=== PATIENT | female | born 1985 | race Caucasian/White ===

== ENCOUNTER 2017-11-17 21:40 | Observation (INO) | payer OTHER ==
[2017-11-17] MEDS ORDERED: Lactated Ringers 2,000 ML IV ONE (22:03)
[2017-11-17] MEDS ORDERED: TYLENOL 325 MG PO PRN (22:24)
[2017-11-17] MEDS ORDERED: Lactated Ringers 1,000 ML IV SCH ×2 (22:30)
[2017-11-17 22:51] LABS: Appearance SLIGHTLY CLOUDY (CLEAR); Bilirubin NEGATIVE (NEGATIVE); Blood 250 Ery/ul (0-5); Glucose NEGATIVE (NEGATIVE); Ketones NEGATIVE (NEGATIVE); Leukocyte Esterase 2+ (NEGATIVE); Nitrite NEGATIVE (NEGATIVE); Protein,Urine Dip NEGATIVE (Negative); Urobilinogen NORMAL mg/dL (0-1)
[2017-11-17 22:52] LABS: Bacteria MODERATE /HPF (NEGATIVE); Epithelial Cells MANY /HPF (FEW)
[2017-11-17] MEDS ORDERED: TYLENOL 325 MG ONE (23:43)
[2017-11-18 01:59] VITALS: BP 102/55; PULSE 64
== END 2017-11-17 23:55 | disposition home or self-care (01) ==
LOC: OB 21:40 → UNDOADMOB 21:40 → UNDODISOB 23:55
PROVIDERS: ADMIT Family Medicine; ATTEND Family Medicine
DX: Z34.82 Encounter for supervision of other normal pregnancy, second trimester (principal)
CPT/HCPCS: 81000; G0378; A9270-GY

== ENCOUNTER 2017-12-12 13:48 | Observation (INO) | payer OTHER ==
[2017-12-12 15:10] LABS: Appearance CLOUDY (CLEAR); Bilirubin NEGATIVE (NEGATIVE); Blood 250 Ery/ul (0-5); Glucose NEGATIVE (NEGATIVE); Ketones TRACE (NEGATIVE); Leukocyte Esterase 2+ (NEGATIVE); Nitrite NEGATIVE (NEGATIVE); Protein,Urine Dip TRACE (Negative); Urobilinogen NORMAL mg/dL (0-1)
[2017-12-12 15:14] LABS: Mucus MANY /HPF (NEGATIVE)
[2017-12-12 15:15] LABS: Bacteria MODERATE /HPF (NEGATIVE); Epithelial Cells MODERATE /HPF (FEW)
[2017-12-12] MEDS ORDERED: Rocephin 1000 MG INJ IM ONE (15:50)
[2017-12-12] MEDS ORDERED: XYLOCAINE 1% HCL 20 ML MDV IJ PRN (15:53)
[2017-12-12 16:16] LABS: BASOPHIL % 0.3 % (0.0-0.4); Basophil (Absolute #) 0.04 (0-0.4); Eosinophil % 1.2 % (0.00-5.0); Eosinophil (Absolute #) 0.18 (0-0.5); Granulocyte Absolute (ANC) 11.66 (1.4-6.9); Granulocytes % 78.1 % (36.0-66.0); Hematocrit 35.2 % (35-47); Hemoglobin 11.3 gm/dl (12.0-16.0); Lymphocyte (Absolute #) 2.08 (1.0-4.6); Lymphocytes % 13.9 % (24.0-44.0); Mean Cell Volume 91.7 fl (78-100); Mean Corpuscular Hemoglobin 29.4 pg (26-32); Mean Corpuscular Hgb Concent. 32.1 g/dl (32-36); Mean Platelet Volume 10.8 fl (6-9.5); Monocyte (Absolute #) 0.97 (0.0-1.3); Monocytes % 6.5 % (0.0-12.0); Platelet Count 291 K/mm3 (150-450); Red Blood Count 3.84 M/mm3 (4.1-5.4); Red Cell Distribution Width 13.1 % (11.5-14.0); White Blood Count 14.9 K/mm3 (4.0-10.5)
[2017-12-12] MEDS ORDERED: Lactated Ringers 1,000 ML IV ONE (16:17)
[2017-12-12] MEDS ORDERED: ROCEPHIN 1 Gm-D5w 50 ml Bag** 1 G/50 ML IVPB IV SCH (16:30)
[2017-12-12 16:37] LABS: ALBUMIN 2.9 g/dL (3.4-5.0); ALKALINE PHOSPHATASE 59 U/L (46-116); ANION GAP 15.7 MEQ/L (5-15); BLOOD UREA NITROGEN 4 mg/dL (9-20); CHLORIDE 104 mEq/L (98-107); Calcium 8.5 mg/dL (8.5-10.1); Carbon Dioxide 23.4 mEq/L (21-32); Creatinine 1 0.58 mg/dl (0.55-1.30); EST GLOMERULAR FILTRATION RATE > 60 ML/MIN; Glucose 90 MG/DL (70-110); Potassium 4.1 mEq/L (3.5-5.1); SGOT/AST 13 U/L (15-37); SGPT/ALT 11 U/L (12-78); SODIUM 139 mEq/L (136-145); Total Protein 6.8 gm/dL (6.4-8.2)
[2017-12-12 18:49] VITALS: BP 122/63; PULSE 63
== END 2017-12-12 18:30 | disposition home or self-care (01) ==
LOC: OB 13:48
PROVIDERS: ADMIT Family Medicine; ATTEND Family Medicine
DX: Z34.83 Encounter for supervision of other normal pregnancy, third trimester (principal)
CPT/HCPCS: 36415; 59025; 80053; 81000; 85025; G0378; J0696

== ENCOUNTER 2018-02-23 09:57 | Observation (INO) | payer OTHER ==
--- NOTE | 2018-02-23 10:59 | XRAY ---
Indication: Evaluate SUNDEEP. Limited OB ultrasound performed to evaluate SUNDEEP. Four-quadrant SUNDEEP is 6.9 cm, previously 16.3 cm November 29, 2017 exam.
[2018-02-23 11:27] VITALS: BP 114/79; PULSE 79
== END 2018-02-23 11:18 | disposition home or self-care (01) ==
LOC: EDSTATUS 10:01 → OB 10:02
PROVIDERS: ADMIT Family Medicine; ATTEND Family Medicine
DX: Z34.83 Encounter for supervision of other normal pregnancy, third trimester (principal)
CPT/HCPCS: 76815; G0378; 59025

== ENCOUNTER 2018-02-27 14:26 | Observation (INO) | payer OTHER ==
[2018-02-27] MEDS ORDERED: XYLOCAINE 1% HCL 20 ML MDV IJ PRN (17:00)
[2018-02-27] MEDS ORDERED: BRETHINE 1 MG/ML SQ PRN (18:42)
[2018-02-27 19:03] LABS: Amphetamine,Urine NEGATIVE (NEGATIVE); Barbiturate,Urine NEGATIVE (NEGATIVE); Benzodiazepine,Urine NEGATIVE (NEGATIVE); Cocaine,Urine NEGATIVE (NEGATIVE); Methadone,Urine NEGATIVE (NEGATIVE); Opiate,Urine NEGATIVE (NEGATIVE); PCP,Urine NEGATIVE (NEGATIVE); THC,Urine NEGATIVE (NEGATIVE)
[2018-02-27 19:12] LABS: BASOPHIL % 0.2 % (0.0-0.4); Basophil (Absolute #) 0.04 (0-0.4); Eosinophil % 0.8 % (0.00-5.0); Eosinophil (Absolute #) 0.14 (0-0.5); Granulocyte Absolute (ANC) 14.05 (1.4-6.9); Granulocytes % 78.6 % (36.0-66.0); Hematocrit 39.7 % (35-47); Hemoglobin 13.3 gm/dl (12.0-16.0); Lymphocyte (Absolute #) 2.45 (1.0-4.6); Lymphocytes % 13.7 % (24.0-44.0); Mean Cell Volume 89.4 fl (78-100); Mean Corpuscular Hgb Concent. 33.5 g/dl (32-36); Mean Platelet Volume 11.8 fl (6-9.5); Monocytes % 6.7 % (0.0-12.0); Platelet Count 299 K/mm3 (150-450); Red Blood Count 4.44 M/mm3 (4.1-5.4); Red Cell Distribution Width 13.9 % (11.5-14.0); White Blood Count 17.9 K/mm3 (4.0-10.5)
[2018-02-27] MEDS ORDERED: Cervidil 10 MG VAG SCH (22:00)
[2018-02-28] MEDS ORDERED: OMNIPEN 2 GM / NACL 100ML 100 ML IV ONE (07:00)
[2018-02-28] MEDS ORDERED: PITOCIN 30 UNITS/ LR 500 ML 500 ML IV SCH ×2 (07:00→08:30)
[2018-02-28] MEDS ORDERED: Lactated Ringers 1,000 ML IV SCH (07:00)
[2018-02-28] MEDS: OMNIPEN 1GM / NaCl 100ML 100 ML IV SCH ×2 (11:05→15:52)
[2018-02-28 18:23] VITALS: BP 119/58; PULSE 61
== END 2018-02-28 18:30 | disposition home or self-care (01) ==
LOC: OB 16:52
PROVIDERS: ADMIT Family Medicine; ATTEND Family Medicine
DX: O61.0 Failed medical induction of labor (principal); Z3A.41 41 weeks gestation of pregnancy
CPT/HCPCS: 36415; 80307; 85025; G0378; J0290; J2590

== ENCOUNTER 2018-03-01 05:03 | Inpatient (IN) | payer OTHER ==
[2018-03-01] MEDS ORDERED: OMNIPEN 2 GM / NACL 100ML 100 ML ONE (05:06)
[2018-03-01] MEDS ORDERED: PITOCIN 30 UNITS/ LR 500 ML 500 ML IV ONE (05:06)
[2018-03-01] MEDS ORDERED: Lactated Ringers 2,000 ML IV ONE (05:06)
[2018-03-01] MEDS ORDERED: PITOCIN 30 UNITS/ LR 500 ML 500 ML IV SCH ×2 (05:30→06:00)
[2018-03-01] MEDS: Lactated Ringers 1,000 ML IV SCH ×2 (05:31→11:01)
[2018-03-01] MEDS ORDERED: BRETHINE 1 MG/ML SQ PRN (05:32)
[2018-03-01] MEDS ORDERED: Lactated Ringers 1,000 ML IV ONE (05:32)
[2018-03-01] MEDS ORDERED: Ephedrine Sulfate 50 MG/ML IV PRN (05:32)
[2018-03-01] MEDS ORDERED: OMNIPEN 2 GM / NACL 100ML 100 ML IV ONE (05:34)
[2018-03-01] MEDS: OB EPIDURAL NAROPIN/SUFENTANIL IN NACL EPIDURAL PRN ×2 (06:30→19:23)
[2018-03-01 08:32] LABS: BASOPHIL % 0.2 % (0.0-0.4); Basophil (Absolute #) 0.03 (0-0.4); Eosinophil % 0.7 % (0.00-5.0); Eosinophil (Absolute #) 0.11 (0-0.5); Granulocyte Absolute (ANC) 13.04 (1.4-6.9); Granulocytes % 80.7 % (36.0-66.0); Hemoglobin 12.6 gm/dl (12.0-16.0); Lymphocyte (Absolute #) 2.01 (1.0-4.6); Lymphocytes % 12.4 % (24.0-44.0); Mean Cell Volume 90.3 fl (78-100); Mean Corpuscular Hemoglobin 29.9 pg (26-32); Mean Corpuscular Hgb Concent. 33.2 g/dl (32-36); Mean Platelet Volume 11.5 fl (6-9.5); Monocyte (Absolute #) 0.97 (0.0-1.3); Platelet Count 265 K/mm3 (150-450); Red Blood Count 4.21 M/mm3 (4.1-5.4); White Blood Count 16.2 K/mm3 (4.0-10.5)
[2018-03-01] MEDS ORDERED: OMNIPEN 1GM / NaCl 100ML 100 ML IV SCH (09:34)
[2018-03-01] MEDS: OMNIPEN 1GM / NaCl 100ML 100 ML IV SCH ×3 (11:01→19:05)
[2018-03-01] MEDS ORDERED: Zofran 4 MG/2 ML VIAL IV PRN (15:18)
[2018-03-01] MEDS ORDERED: XYLOCAINE 1% HCL 20 ML MDV IJ PRN (19:00)
[2018-03-01] MEDS ORDERED: XYLOCAINE 1% HCL 20 ML MDV ONE (21:40)
[2018-03-01] MEDS ORDERED: Dermoplast Spray TP PRN (22:00)
[2018-03-01] MEDS ORDERED: LANSINOH 40 GM TOP PRN (22:00)
[2018-03-01] MEDS ORDERED: TYLENOL EXTRA STRENGTH 500 MG PO PRN (22:00)
[2018-03-01] MEDS ORDERED: Dulcolax 10 MG SUPP PR PRN (22:00)
[2018-03-01] MEDS ORDERED: MOTRIN 400 MG PO PRN (22:00)
[2018-03-01] MEDS ORDERED: TUCKS TP PRN (22:00)
[2018-03-01] MEDS ORDERED: Mylicon 80MG PO PRN (22:00)
[2018-03-01] MEDS ORDERED: TORAdol 30 mg Injection IV ONE (22:44)
[2018-03-01] MEDS ORDERED: SUBLIMAZE 100 MCG/2 ML IV ONE (22:44)
[2018-03-01] MEDS ORDERED: Decadron 4 MG INJ IV ONE (22:44)
[2018-03-01] MEDS ORDERED: DIPRIVAN 200 MG/20 ML IV ONE (22:44)
[2018-03-01] MEDS ORDERED: XYLOCAINE 2%/Epi 1:200000 20ML VIAL MPF IJ ONE (22:44)
[2018-03-01] MEDS ORDERED: Nesacaine 3% -Mpf*** 20ML SDV IJ ONE (22:44)
[2018-03-01] MEDS ORDERED: Quelicin Fliptop 200 MG/10 ML IV ONE (22:44)
[2018-03-01] MEDS ORDERED: Ephedrine Sulfate 50 MG/ML IV ONE (22:44)
[2018-03-01] MEDS ORDERED: Zofran 4 MG/2 ML VIAL IV ONE (22:44)
[2018-03-01] MEDS ORDERED: Zemuron 100 MG/10 ML IV ONE (22:44)
[2018-03-01] MEDS ORDERED: Dermoplast Spray ONE (23:29)
[2018-03-01] MEDS ORDERED: TUCKS TP ONE (23:29)
[2018-03-02 00:36] LABS: ABO TYPING A
[2018-03-02 00:37] LABS: ANTIBODY SCREEN NEGATIVE (NEGATIVE); RH TYPING NEGATIVE
[2018-03-02 05:35] LABS: Granulocyte Absolute (ANC) 16.61 (1.4-6.9); Hemoglobin 12.5 gm/dl (12.0-16.0); Mean Cell Volume 90.7 fl (78-100); Mean Corpuscular Hemoglobin 29.8 pg (26-32); Mean Corpuscular Hgb Concent. 32.9 g/dl (32-36); Platelet Count 252 K/mm3 (150-450); Red Blood Count 4.19 M/mm3 (4.1-5.4); Red Cell Distribution Width 14.1 % (11.5-14.0); White Blood Count 20.6 K/mm3 (4.0-10.5)
[2018-03-02] MEDS ORDERED: Lactated Ringers 1,000 ML IV ONE ×2 (06:00→06:55)
[2018-03-02] MEDS ORDERED: CEFAZOLIN 2 GM-D5W BAG** 2 GM/50 ML ML IV ONE (06:48)
[2018-03-02] MEDS ORDERED: Sensorcaine 0.25% 10 ML ONE (06:55)
[2018-03-02 07:00] LABS: INR 0.88 (0.8-3.0)
[2018-03-02] MEDS ORDERED: CEFAZOLIN 2 GM-D5W BAG** 2 GM/50 ML ML IV SCH (07:00)
[2018-03-02 07:03] LABS: PTT 28.8 SECONDS (25.3-37.0)
[2018-03-02 08:02] LABS: Eosinophil 3 % (0.00-3.0); Lymphocytes 5 % (24-44); Monocyte 10 % (0.0-12.0); Neutrophils 82 % (36.0-66.0); Total Cells Counted 100
[2018-03-02 08:05] LABS: ANISOCYTOSIS 1+; Poikilocytosis 1+
[2018-03-02] MEDS ORDERED: Zofran 4 MG/2 ML VIAL ONE (09:00)
[2018-03-02] MEDS ORDERED: TORAdol 30 mg Injection ONE (09:06)
[2018-03-02 09:41] LABS: Appearance HAZY (CLEAR); Bilirubin NEGATIVE (NEGATIVE); Blood 250 Ery/ul (0-5); Glucose NEGATIVE (NEGATIVE); Ketones NEGATIVE (NEGATIVE); Leukocyte Esterase 1+ (NEGATIVE); Nitrite NEGATIVE (NEGATIVE); Protein,Urine Dip NEGATIVE (Negative); Urobilinogen NORMAL mg/dL (0-1)
[2018-03-02 09:42] LABS: Bacteria FEW /HPF (NEGATIVE); Epithelial Cells FEW /HPF (FEW); RBC 15-25 /HPF (0-2)
[2018-03-02] MEDS ORDERED: Rhogam Plus 300 MCG IM ONE (10:00)
[2018-03-02] MEDS ORDERED: FERREX 150 PO SCH (10:00)
[2018-03-02] MEDS: Colace 100 MG PO SCH ×2 (11:15→20:50)
[2018-03-02] MEDS: NORCO 5/325 MG PO PRN ×2 (11:15→15:29)
--- NOTE | 2018-03-02 13:22 | OP ---
SURGERY DATE/TIME: 03/02/2018 0742 PREOPERATIVE DIAGNOSIS: Desires permanent sterilization. POSTOPERATIVE DIAGNOSIS: Desires permanent sterilization. PROCEDURES: bilateral tubal ligation. SURGEON: Chester Cardenas M.D. ANESTHESIA: General by Kristopher Callahan CRNA. ESTIMATED BLOOD LOSS: Minimal. SPECIMENS: Bilateral fallopian tube segments. DESCRIPTION OF PROCEDURE: After informed, written consent was obtained, the patient was taken to the OR. She was prepped and draped in usual sterile fashion. 0.25% Marcaine was used to infiltrate the area of incision with 10 cc used in total. Infraumbilical incision was made in horizontal fashion carried down to the subcutaneous fat. The fascia was grasped with hemostats and carefully the fascia opened and extended in the horizontal fashion. First the left fallopian tube identified and carried down to its fimbrial end. The tube was grasped with [place] and then a window made in the mesoappendix with cautery proximal and distal tube segments were ligated with chromic tie and the interceding tube segment dissected free. The free edge of the tube was then cauterized with electrocautery. The same was repeated on the right side with no complications. The fascia was then closed with 0 Vicryl in running fashion with good closure and good hemostasis. Three interrupted sutures were placed in the subcutaneous fat to close the space with 3-0 Vicryl with good closure and good hemostasis. Finally, the skin layer was closed with 4-0 undyed Vicryl in running subcuticular fashion. Steri-Strips and occlusive dressing were placed over the incision. The patient was transferred to recovery in good condition.
--- NOTE | 2018-03-02 14:59 | PCM.DS ---
Discharge Summary Date of Admission: 03/01/18 08:45 Admitting Physician: DANNY ORELLANA Consults: Consults on Case 03/01/18 05:33 Notify Anesthesia Provider PRN Primary Care Provider: DANNY ORELLANA Allergies Allergies No Known Drug Allergies Allergy (Verified 11/17/17 23:27) Hospital Summary - Hospital Course Hospital Course: Pt came in as 32 yo at 40w 1d for post dates induction of labor. She failed cervadil overnight and pitocin the next day. Pt went home then returned; got her epidural at 3cm then AROM with clear fluid. Received abx for GBS prohpylaxis prior to AROM. Delivered vigorous female, 7lb 14oz, at 9:30 pm. no complications. BTL done this morning. pt is up out of bed, feeling good, would like to go home. 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 - Vitals & Intake/Output Vital Signs: Vital Signs Temperature 98.1 F 03/02/18 06:42 Pulse Rate 80 03/02/18 06:42 Respiratory Rate 18 03/02/18 06:42 Blood Pressure 107/71 03/02/18 06:42 O2 Sat by Pulse Oximetry Intake & Output: Intake & Output 02/28/18 03/01/18 03/02/18 03/03/18 11:59 11:59 11:59 11:59 Intake Total 4900 Output Total 500 Balance 4400 Weight 112.491 kg 112.491 kg - Lab Result Diagrams: 03/02/18 05:20 Lab Results-Last 24 Hrs: Lab Results-Last 24 Hours 03/01/18 03/01/18 03/02/18 Range/Units 22:20 22:44 05:00 WBC (4.0-10.5) K/mm3 RBC (4.1-5.4) M/mm3 Hgb (12.0-16.0) gm/dl Hct (35-47) % MCV (78-100) fl MCH (26-32) pg MCHC (32-36) g/dl RDW (11.5-14.0) % Plt Count (150-450) K/mm3 MPV (6-9.5) fl Absolute Granulocytes (1.4-6.9) Segmented Neutrophils (36.0-66.0) % Lymphocytes (Manual) (24-44) % Monocytes (Manual) (0.0-12.0) % Eosinophils (Manual) (0.00-3.0) % Poikilocytosis Anisocytosis PT 10.2 (9.95-12.35) SECONDS INR 0.88 (0.8-3.0) APTT 28.8 (25.3-37.0) SECONDS Ur Collection Type Urine Color (YELLOW) Urine Appearance (CLEAR) Urine pH (5-6) Ur Specific [place] (1.005-1.025) Urine Protein (Negative) Urine Ketones (NEGATIVE) Urine Blood (0-5) Sam/ul Urine Nitrite (NEGATIVE) Urine Bilirubin (NEGATIVE) Urine Urobilinogen (0-1) mg/dL Ur Leukocyte Esterase (NEGATIVE) Urine Microscopic RBC (0-2) /HPF Urine Microscopic WBC (0-5) /HPF Ur Epithelial Cells (FEW) /HPF Urine Bacteria (NEGATIVE) /HPF Urine Glucose (NEGATIVE) mg/dL Antibody Screen NEGATIVE (NEGATIVE) Specimen Received ABO Group A Rh Factor NEGATIVE Screen SEE SEPARATE REPORT 03/02/18 03/02/18 Range/Units 05:20 07:51 WBC 20.6 H (4.0-10.5) K/mm3 RBC 4.19 (4.1-5.4) M/mm3 Hgb 12.5 (12.0-16.0) gm/dl Hct 38.0 (35-47) % MCV 90.7 (78-100) fl MCH 29.8 (26-32) pg MCHC 32.9 (32-36) g/dl RDW 14.1 H (11.5-14.0) % Plt Count 252 (150-450) K/mm3 MPV 12.0 H (6-9.5) fl Absolute Granulocytes 16.61 H (1.4-6.9) Segmented Neutrophils 82 H (36.0-66.0) % Lymphocytes (Manual) 5 L (24-44) % Monocytes (Manual) 10 (0.0-12.0) % Eosinophils (Manual) 3 (0.00-3.0) % Poikilocytosis 1+ Anisocytosis 1+ PT (9.95-12.35) SECONDS INR (0.8-3.0) APTT (25.3-37.0) SECONDS Ur Collection Type CATH Urine Color YELLOW (YELLOW) Urine Appearance HAZY (CLEAR) Urine pH 6.0 (5-6) Ur Specific [place] 1.020 (1.005-1.025) Urine Protein NEGATIVE (Negative) Urine Ketones NEGATIVE (NEGATIVE) Urine Blood 250 (0-5) Sam/ul Urine Nitrite NEGATIVE (NEGATIVE) Urine Bilirubin NEGATIVE (NEGATIVE) Urine Urobilinogen NORMAL (0-1) mg/dL Ur Leukocyte Esterase 1+ (NEGATIVE) Urine Microscopic RBC 15-25 (0-2) /HPF Urine Microscopic WBC 2-5 (0-5) /HPF Ur Epithelial Cells FEW (FEW) /HPF Urine Bacteria FEW (NEGATIVE) /HPF Urine Glucose NEGATIVE (NEGATIVE) mg/dL Antibody Screen (NEGATIVE) Specimen Received 03/02 915 ABO Group Rh Factor Screen Micro Results-Entire Visit: Microbiology 03/01/18 13:52 Urine Culture - Preliminary Catherized NO GROWTH TO DATE Discharge Exam General Appearance: no apparent distress, alert Neurologic Exam: oriented x 3, cooperative Skin Exam: normal color, warm, dry, No rash Ears, Nose, Throat Exam: moist mucous membranes Neck Exam: full range of motion Respiratory Exam: No respiratory distress Gastrointestinal/Abdomen Exam: soft, tenderness (mild), other (umbilical wound dressing c/d/i. Fundus firming under umbilicus.), No distention Extremity Exam: normal inspection, No pedal edema, No swelling Final Diagnosis/Problem List - Final Discharge Diagnosis/Problem (1) Spontaneous vaginal delivery Current Visit: Yes Status: Acute Assessment & Plan: PPD #1, doing great. OK to d/c home. Advised watch baby's temperature closely with +GBS, although prophylaxis was given. (2) Tubal ligation status Current Visit: Yes Status: Acute Assessment & Plan: POD #0 today, doing great, Dr. Cardenas OK with pt being discharged to home. - Discharge Disposition: Home, Self-Care Condition: Good Prescriptions: New Hydrocodone Bit/Acetaminophen [[place] 5-325 Tablet] 1 each PO Q4H PRN #10 tablet MDD 6 PRN Reason: Severe Pain Continue Vits W-Ca,Fe,FA(<1Mg) [] 1 tab PO LUNCH Follow up with: DANNY ORELLANA [Primary Care Provider] - 1 Week
[2018-03-02 18:36] VITALS: BP 136/63
[2018-03-02 18:41] VITALS: PULSE 18
== END 2018-03-02 22:45 | disposition home or self-care (01) | DRG 775 ==
LOC: OB 05:03 → OBSVTOIN 08:45 → OB 08:45
PROVIDERS: ADMIT Family Medicine; ATTEND Family Medicine
DX: O80 Encounter for full-term uncomplicated delivery (principal); Z37.0 Single live birth; Z3A.40 40 weeks gestation of pregnancy; Z30.2 Encounter for sterilization
CPT/HCPCS: 36415; 81000; 85025; 85461; 85610; 85730; 86850; 86900; 86901; 87086; 94799; G0378; J0290; J0330; J0690; J1100; J1885; J2405; J2590; J2704; J2790; J2795; J3010; L0625; A9270-GY

== ENCOUNTER 2023-11-26 04:19 | Emergency (ER) | payer OTHER ==
[2023-11-26 04:50] VITALS: TEMP 97.7; O2SAT 100
[2023-11-26] MEDS ORDERED: TORAdol 30 mg Injection IV ONE (04:51)
[2023-11-26] MEDS ORDERED: Zofran 4 MG/2 ML VIAL IV ONE (04:52)
[2023-11-26] MEDS ORDERED: BENADRYL 50 MG/ML IV ONE (04:52)
[2023-11-26] MEDS ORDERED: Sodium Chloride 0.9% 1000 ML 1,000 ML IV STA (04:53)
--- NOTE | 2023-11-26 04:56 | ERPHSYRPT ---
- History of Present Illness Time Seen by Provider: 11/26/23 04:54 Source: patient Patient Subjective Stated Complaint: pt states she has had a headache off and on since yesterday. states she woke up at 0100 this am with pain in her rt head, behind her rt eye to occipital area. pain was not relieved by otc medications taken at home and pt states for approx 15 min this morning. rates 8/10 and describes as pressure. Triage Nursing Assessment: pt alert and oriented, answers questions approp. pt ambulates into room with steady gait noted. respirations nonlabored/ skin warm and dry. pt moves extremities without diff. pupils equal and reactive. Physician History: 38 years old female presenting to the emergency room complaining of severe right-sided headache behind her right eye radiating to her right occiput with nausea and some photophobia. The patient states that yesterday she has been having these headaches on and off. She woke up at 1 AM with severe right retro-orbital sharp headache. The patient took Tylenol 500, ibuprofen 200 mg and some NyQuil without any relief. She rates her headache as 8 out of 10. She states that at 1 time she lost vision in her right eye for probably 15 minutes. She denies any other neurological symptoms. At present her vision is back to normal. The patient has no history of migraine headaches. Allergies/Adverse Reactions: No Known Drug Allergies Allergy (Verified 11/17/17 23:27) Home Medications: Vits W-Ca,Fe,FA(<1Mg) [] 1 tab PO LUNCH 11/17/17 [History] Hx Tetanus, Diphtheria Vaccination/Date Given: Yes Hx Influenza Vaccination/Date Given: Yes Hx Pneumococcal Vaccination/Date Given: No Immunizations Up to Date: Yes Travel Risk - International Travel Have you traveled outside of the country in past 3 weeks: No - Coronavirus Screening Are you exhibiting any of the following symptoms?: No Close contact with a COVID-19 positive Pt in past 14-21 Days: No - Vaccine Status Have you recieved a Covid-19 vaccination: Yes [employer]: [employer] - Vaccination Dates Date of 2cond Vaccination (if applicable): 2020 - Review of Systems Constitutional: No Fever, No Chills Eyes: No Symptoms, Vision Changes Ears, Nose, & Throat: No Symptoms Respiratory: No Cough, No Dyspnea Cardiac: No Chest Pain, No Edema, No Syncope Abdominal/Gastrointestinal: Nausea, No Abdominal Pain, No Vomiting, No Diarrhea Genitourinary Symptoms: No Dysuria Musculoskeletal: No Back Pain, No Neck Pain Skin: No Rash Neurological: Headache, No Dizziness, No Focal Weakness, No Sensory Changes Psychological: No Symptoms Endocrine: No Symptoms All Other Systems: Reviewed and Negative - Past Medical History Pertinent Past Medical History: Yes Neurological History: No Pertinent History ENT History: No Pertinent History Cardiac History: No Pertinent History Respiratory History: No Pertinent History Endocrine Medical History: No Pertinent History Musculoskeletal History: No Pertinent History GI Medical History: Gallbladder Disease History: No Pertinent History Psycho-Social History: Anxiety Female Reproductive Disorders: No Pertinent History Other Medical History: SX - CHOLECYSTECOMY, TONSILLECTOMY, TUBAL LIGATION - Past Surgical History Past Surgical History: Yes Neuro Surgical History: No Pertinent History Cardiac: No Pertinent History Respiratory: No Pertinent History Gastrointestinal: Cholecystectomy Genitourinary: No Pertinent History Musculoskeletal: No Pertinent History Female Surgical History: No Pertinent History Other Surgical History: TONSILLECTOMY - Social History Smoking Status: Former smoker How long have you smoked: 15 Exposure to second hand smoke: No Drug Use: none Patient Lives Alone: No - Female History Hx Last Menstrual Period: 10 days Hx Now: No - Nursing Vital Signs Nursing Vital Signs: Initial Vital Signs Temperature 97.7 F 11/26/23 04:27 Pulse Rate 74 11/26/23 04:27 Respiratory Rate 16 11/26/23 04:27 Blood Pressure 145/83 11/26/23 04:27 O2 Sat by Pulse Oximetry 100 11/26/23 04:27 Pain Scale Pain Intensity 8 - Physical Exam General Appearance: no apparent distress Eye Exam: PERRL/EOMI Ears, Nose, Throat Exam: normal ENT inspection, moist mucous membranes Neck Exam: normal inspection, supple, full range of motion, No meningismus Respiratory Exam: normal breath sounds, lungs clear Cardiovascular Exam: regular rate/rhythm, normal heart sounds Gastrointestinal/Abdominal Exam: soft, No tenderness, No distention Back Exam: normal inspection, normal range of motion Mental Status Exam: alert, oriented x 3, 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 Exam: normal speech, PERRL, No facial droop Coordination/Gait Exam: normal cerebellar function Motor/Sensory Exam: no motor deficit, no sensory deficit Skin Exam: normal color, warm, dry, No rash SpO2: 100 - Course Nursing assessment & vital signs reviewed: Yes Ordered Tests: Active Orders 24 hr Category Date Time Status HEAD WITHOUT CONTRAST [CT] Stat Exams 11/26/23 04:50 Completed Medication Summary Discontinued Medications Generic Name Dose Route Start Last Admin Trade Name Brennen PRN Reason Stop Dose Admin Diphenhydramine HCl 25 mg 11/26/23 04:52 11/26/23 05:11 Diphenhydramine Hcl 50 Mg/Ml Vial IV 11/26/23 04:53 25 mg STAT ONE Administration Diphenhydramine HCl Confirm 11/26/23 05:01 Diphenhydramine Hcl 50 Mg/Ml Vial Administered 11/26/23 05:02 Dose 50 mg .ROUTE .STK-MED ONE Sodium Chloride 1,000 mls @ 999 mls/hr 11/26/23 04:53 11/26/23 05:11 Sodium Chloride 0.9% 1000 Ml IV 11/26/23 05:53 999 mls/hr .Q1H1M STA Administration Sodium Chloride Confirm 11/26/23 05:02 Sodium Chloride 0.9% 1000 Ml Administered 11/26/23 05:03 Dose 1,000 mls @ ud .ROUTE .STK-MED ONE Ketorolac Tromethamine 30 mg 11/26/23 04:51 11/26/23 05:18 Ketorolac Tromethamine 30 Mg/Ml Inj IV 11/26/23 04:52 30 mg STAT ONE Administration Ketorolac Tromethamine Confirm 11/26/23 05:01 Ketorolac Tromethamine 30 Mg/Ml Inj Administered 11/26/23 05:02 Dose 30 mg .ROUTE .STK-MED ONE Ondansetron HCl 4 mg 11/26/23 04:52 11/26/23 05:18 Ondansetron Hcl 4 Mg/2 Ml Vial IV 11/26/23 04:53 4 mg STAT ONE Administration Ondansetron HCl Confirm 11/26/23 05:01 Ondansetron Hcl 4 Mg/2 Ml Vial Administered 11/26/23 05:02 Dose 4 mg .ROUTE .STK-MED ONE - Progress Progress Note: 11/26/23 04:56 38 years old female presenting to the emergency room complaining of severe right-sided headache behind her right eye radiating to her right occiput with nausea and some photophobia. The patient states that yesterday she has been having these headaches on and off. She woke up at 1 AM with severe right retro-orbital sharp headache. The patient took Tylenol 500, ibuprofen 200 mg and some NyQuil without any relief. She rates her headache as 8 out of 10. She states that at 1 time she lost vision in her right eye for probably 15 minutes. She denies any other neurological symptoms. At present her vision is back to normal. The patient has no history of migraine headaches. Emergency room course and medical decision making. Since this is the first severe headache, will order a CT scan of the patient's head. She will be treated with IV Toradol 30 mg, IV Zofran, IV Benadryl and IV fluid. 11/26/23 06:[address] scan of the brain is negative for any acute findings. She is feeling much better her headache is almost completely resolved. The patient will be discharged home accompanied by her friend. She needs to rest increase her fluid intake. Follow-up with your family physician 2 to 3 days. - Departure Departure Disposition: Home Clinical Impression: Cluster headache Condition: Stable Critical Care Time: No Referrals: JARROD VARGAS NP [Primary Care Provider] - Follow up/PCP as directed Instructions: Headache, Adult (DC) Additional Instructions: Alternate 2 extra strength Tylenol with 800 mg of ibuprofen as needed for the headache. Rest increase fluid intake. Follow-up with family physician 2 to 3 days.
[2023-11-26] MEDS ORDERED: Zofran 4 MG/2 ML VIAL ONE (05:01)
[2023-11-26] MEDS ORDERED: TORAdol 30 mg Injection ONE (05:01)
[2023-11-26] MEDS ORDERED: BENADRYL 50 MG/ML ONE (05:01)
[2023-11-26] MEDS ORDERED: Sodium Chloride 0.9% 1000 ML 1,000 ML ONE (05:02)
--- NOTE | 2023-11-26 05:28 | XRAY ---
CLINICAL HISTORY: Headache TECHNIQUE: Multiple axial images are obtained from the skull base to the vertex without contrast. CT scan was performed according to ALARA (as low as reasonable achievable). COMPARISON: None FINDINGS: The brain shows normal morphology, attenuation, and volume for age. No evidence of space occupying lesion, hemorrhage, edema, mass effect, midline shift, extra axial collection, or hydrocephalus is noted. Ventricles, sulci, and basal cisterns are symmetric and normal in size and configuration. The snow-white matter differentiation is preserved. Visualized paranasal sinuses and mastoid air cells are well aerated. Orbital contents are within normal limits. Bony structures are intact. IMPRESSION: 1. No acute intrabdominal pathology present. Electronically Signed by: Dr. Cameron Du MD. (11/26/2023 05:23:24 EST)
[2023-11-26 06:54] VITALS: BP 121/82; PULSE 68; RESP 18
== END 2023-11-26 07:02 | disposition home or self-care (01) ==
LOC: ED 04:19
DX: G44.009 Cluster headache syndrome, unspecified, not intractable (principal); R11.0 Nausea; H53.141 Visual discomfort, right eye
CPT/HCPCS: 36000; 70450; 96374; 99284; J1200; J1885; J2405

== ENCOUNTER 2024-08-06 12:10 | Observation (INO) | payer OTHER, BC ==
--- NOTE | 2024-08-06 12:55 | XRAY ---
Indication: Left upper quadrant pain. Nausea and vomiting. Multiple contiguous axial images obtained through the abdomen and pelvis without contrast. Comparison: November 21, 2015 Lung bases clear. Heart not enlarged. Noncontrasted stomach and bowel loops appear nonobstructed with normal appendix. Again cholecystectomy. No free fluid/air. Remaining liver, pancreas, spleen, adrenal glands, kidneys, ureters, bladder, uterus, and aorta are unremarkable for noncontrast exam. Osseous structures intact. No ventral or inguinal hernias. Impression: Normal CT abdomen/pelvis without contrast exam.
--- NOTE | 2024-08-06 12:57 | XRAY ---
Indication: Chest pain. Comparison: March 13, 2016 PA/lateral chest again demonstrates normal heart and lungs. Bony thorax intact again with minimal levoscoliosis centered at T4. No new/acute findings.
--- NOTE | 2024-08-06 14:11 | XRAY ---
Indication: Chest/epigastric pain. Elevated d-dimer. Vomiting after eating. Multiple contiguous axial images obtained through the chest using 80 cc Isovue 370 contrast and PE protocol. Comparison: January 12, 2015 Good opacification pulmonary arteries including lobar and segmental branches. Right upper lobe posterior segmental branch now demonstrates tiny nonoccluding pulmonary embolus. No other pulmonary embolus. Heart not enlarged. Aorta is normal in course and caliber. No pathologic mediastinal/hilar lymphadenopathy. Lungs inflated and remains clear. Bony thorax intact. Limited upper abdomen again demonstrates cholecystectomy clips. Impression: New tiny nonoccluding pulmonary embolus right upper lobe. Remaining CT chest with contrast exam is negative.
[2024-08-06] MEDS ORDERED: TYLENOL 325 MG PO PRN (15:02)
[2024-08-06] MEDS: Zofran 4 MG/2 ML VIAL IV PRN (15:49)
--- NOTE | 2024-08-06 15:55 | PCM.HP ---
History of Present Illness - Chief Complaint Chief Complaint: PE/N/V Date: 08/06/24 History of Present Illness: is a 38 year old female with no significant past medical history, direct admit under the advisement of Nat De La Torre NP who presents with a 7 day history of nausea, vomiting, acid reflux, and bloating. Patient reports for the last four days she has been unable to tolerate solid foods. She also endorses some epigastric pressure and dyspnea. Outpatient workup performed with CT abdomen/pelvis with no acute findings. CXR with no acute findings. CT chest showing new tiny non-occluding PE in the RUL. Lab findings remarkable for elevated DDimer in the setting of PE. CBC and chemistries unremarkable. Patient denies risk factors for PE including recent travel, smoking, h/o malignancy, or control. Denies fever,cough, cp, ENGEL, or dizziness. Patient is on RA during interview. Patient does mention that she had been diagnosed with PE prior but once CT reviewed by Dr. Rodgers, PE was ruled out - she had started Xarelto at that time and later discontinued. I have reviewed imaging from 05/29/14 showing filling defect in the right hilium in the right pulmonary artery - with strong possibility of PE. Patient requests consult with Dr. Rodgers to review imaging. - Review of Systems Constitutional: No Symptoms Eyes: No Symptoms Ears, Nose, & Throat: No Symptoms Respiratory: Short Of Breath Cardiac: No Symptoms Abdominal/Gastrointestinal: Nausea, Vomiting, Appetite Changes (unable to tolerate solid food), Other (bloating) Genitourinary Symptoms: No Symptoms Musculoskeletal: No Symptoms Skin: No Symptoms Neurological: No Symptoms Psychological: No Symptoms Endocrine: No Symptoms Hematologic/Lymphatic: No Symptoms Immunological/Allergic: No Symptoms Medications & Allergies Home Medications: Home Medication List Vits W-Ca,Fe,FA(<1Mg) [] 1 tab PO LUNCH 11/17/17 [History Confirmed 03/01/18] Hydrocodone/Acetaminophen [[place] 5-325 Tablet] 1 each PO Q4H PRN #10 tablet MDD 6 03/02/18 [Rx] Allergies/Adverse Reactions: Allergies Allergy/AdvReac Type Severity Reaction Status Date / Time No Known Drug Allergies Allergy Verified 11/17/17 23:27 - Past Medical History Past Medical History: Yes Neurological History: No Pertinent History ENT History: No Pertinent History Cardiac History: No Pertinent History Respiratory History: No Pertinent History Endocrine Medical History: No Pertinent History Musculoskelatal History: No Pertinent History GI Medical History: Gallbladder Disease History: No Pertinent History Pyscho-Social History: Anxiety Reproductive Disorders: No Pertinent History Comment: SX - CHOLECYSTECOMY, TONSILLECTOMY, TUBAL LIGATION - Female History Hx Last Menstrual Period: 08/13/14 - Past Surgical History Past Surgical History: Yes Neuro Surgical History: No Pertinent History Cardiac History: No Pertinent History Respiratory Surgery: No Pertinent History GI Surgical History: Cholecystectomy Genitourinary Surgical Hx: No Pertinent History Musculskeletal Surgical Hx: No Pertinent History Female Surgical History: No Pertinent History Other Surgical History: TONSILLECTOMY - Social History Smoking Status: Former smoker How long have you smoked: 15 Exposure to second hand smoke: No Alcohol: None Drug Use: none - Physical Exam General Appearance: no apparent distress Neurologic Exam: alert, oriented x 3, cooperative Results - Radiology Impressions Radiology Exams & Impressions: Radiology Procedures Category Date Time Status ABDOMEN AND PELVIS W/0 CONTRAS [CT] Routine Exams 08/06/24 12:29 Completed CHEST 2 VIEWS (PA AND LAT) Routine Exams 08/06/24 12:29 Completed CHEST WITH CONTRAST [CT] Stat Exams 08/06/24 13:10 Completed - Other Procedures and Tests Respiratory Therapy 08/06/24 15:02 Respiratory Therapy Consult ONCE Telemedicine Encounter - Telemedicine Encounter Telemedicine Encounter: "The entirety of this encounter was performed via Telemedicine" This visit was performed using real-time audio and video connection between my location and thepatients locationwith the assistance of a surrogateat the patients location. Written or verbal consent was obtained from the patient/guardian to perform this visit using[facility] technology. Any patient questions regarding the telemedicine interaction were answered.
--- NOTE | 2024-08-06 16:11 | PCM.HP ---
<ARMAND SANTIAGO - Last Filed: 08/06/24 16:55> History of Present Illness - Chief Complaint Chief Complaint: PE/viral gastroenteritis Date: 08/06/24 History of Present Illness: is a 38 year old female with no significant pmhx who [facility] a week history of nausea, vomiting, abdominal bloating/distention, and shortness of breath. Patient states that over the past four days she has only been able to tolerate a clear liquid diet. Patient has had outpatient workup with CT abdomen/pelvis with no acute findings. CXR with no acute findings. CT chest showing new tiny non-occluding PE in the RUL. Lab findings remarkable for elevated ddimer in the setting of PE. CBC and chemistries unremarkable. Lupe/lipase WNL. Patient denies PE risk factors including travel, h/o malignancy, smoking, or use of control. She does report that back in 2013 she was diagnosed with a PE and started on Xarelto. She was referred to agent producer Dr. Rodgers who reviewed her imagining and ruled out PE noting that instead she had reactive enlarged LN from recent URI. Patient was then taken off of Xarelto. Denies fever,cough,cp, dysuria, hematuria, leg pain, or edema. Dr. Rodgers has reviewed CT imaging - can not rule out PE - recommends either repeating CTA tomorrow or continue with OAC x 3 months. - Review of Systems Constitutional: No Symptoms Eyes: No Symptoms Ears, Nose, & Throat: No Symptoms Respiratory: Short Of Breath Cardiac: No Symptoms Abdominal/Gastrointestinal: Abdominal Pain, Nausea, Vomiting Genitourinary Symptoms: No Symptoms Musculoskeletal: No Symptoms Skin: No Symptoms Neurological: No Symptoms Psychological: No Symptoms Endocrine: No Symptoms Hematologic/Lymphatic: No Symptoms Immunological/Allergic: No Symptoms Medications & Allergies Home Medications: Home Medication List No Reportable Medications [No Reported Medications] 08/06/24 [History Confirmed 08/06/24] Allergies/Adverse Reactions: Allergies Allergy/AdvReac Type Severity Reaction Status Date / Time No Known Drug Allergies Allergy Verified 11/17/17 23:27 - Past Medical History Past Medical History: Yes Neurological History: No Pertinent History ENT History: No Pertinent History Cardiac History: No Pertinent History Respiratory History: No Pertinent History, Pulmonary Embolism Endocrine Medical History: No Pertinent History Musculoskelatal History: Other GI Medical History: Gallbladder Disease History: No Pertinent History Pyscho-Social History: Anxiety Reproductive Disorders: No Pertinent History Comment: SX - CHOLECYSTECOMY, TONSILLECTOMY, TUBAL LIGATION; TORN GASTROCNEMIUS - Female History Are you now?: No - Past Surgical History Past Surgical History: Yes Neuro Surgical History: No Pertinent History Cardiac History: No Pertinent History Respiratory Surgery: No Pertinent History GI Surgical History: Cholecystectomy Genitourinary Surgical Hx: No Pertinent History Musculskeletal Surgical Hx: No Pertinent History Female Surgical History: No Pertinent History Other Surgical History: TONSILLECTOMY; EGD; Colonoscopy - Social History Smoking Status: Former smoker How long have you smoked: 15 Exposure to second hand smoke: No Alcohol: None Drug Use: none - Physical Exam Vital Signs: Vital Signs - 24 hr Pulse Resp Pulse Ox 08/06/24 15:51 76 16 98 General Appearance: no apparent distress Neurologic Exam: alert, oriented x 3, cooperative Eye Exam: PERRL/EOMI Ears, Nose, Throat Exam: normal ENT inspection Neck Exam: normal inspection Respiratory Exam: normal breath sounds, lungs clear Cardiovascular Exam: regular rate/rhythm, normal heart sounds Gastrointestinal/Abdomen Exam: other (hypoactive BS x 4 quads) Pelvic Exam: not done Rectal Exam: deferred Back Exam: normal inspection Extremity Exam: normal inspection Skin Exam: normal color Results - Radiology Impressions Radiology Exams & Impressions: Radiology Procedures Category Date Time Status ABDOMEN AND PELVIS W/0 CONTRAS [CT] Routine Exams 08/06/24 12:29 Completed CHEST 2 VIEWS (PA AND LAT) Routine Exams 08/06/24 12:29 Completed CHEST WITH CONTRAST [CT] Stat Exams 08/06/24 13:10 Completed VENOUS BILATERAL EXTREMITY [US] Stat Exams 08/06/24 15:55 Ordered Assessment/Plan (1) Pulmonary embolism Current Visit: Yes Status: Acute Assessment & Plan: -CT Chest showing new tiny RUL PE - non-occluding -Unprovoked - Dr. Rodgers has reviewed imaging per pt request - agrees that PE can not be excluded - recs either patient can repeat CTA tomorrow or continue with OAC x 3 months -pt to decide -consider hematology consult for evaluation of clotting disorder -RA at baseline -supplemental oxygen as needed - ABG with significant hypoxia -Tele -Lovenox -therapeutic dosing x 24 hours then- Eliquis 10mg bid x 7 days, 5mg bid there after -Venous doppler BLE Code(s): I26.99 - OTHER PULMONARY EMBOLISM WITHOUT ACUTE COR PULMONALE (2) Abdominal pain Current Visit: No Status: Acute Assessment & Plan: -CT abdomen with no acute findings - last BM today -Lupe/lipase wnl -most likely viral -supportive care with anti-emetics - maintain CLD -ADAT Code(s): R10.9 - UNSPECIFIED ABDOMINAL PAIN (3) Vomiting Current Visit: No Status: Acute Assessment & Plan: -see abdominal pain VTE: lovenox PPI: Protonix Dispo: 1-2 days Code(s): R11.10 - VOMITING, UNSPECIFIED Telemedicine Encounter - Telemedicine Encounter Telemedicine Encounter: "The entirety of this encounter was performed via Telemedicine" This visit was performed using real-time audio and video connection between my location and thepatients locationwith the assistance of a surrogateat the patients location. Written or verbal consent was obtained from the patient/guardian to perform this visit using[employer] technology. Any patient questions regarding the telemedicine interaction were answered. <CATHY HUANG - Last Filed: 08/06/24 21:48> History of Present Illness - Chief Complaint History of Present Illness: is a 38 year old female. - Physical Exam Vital Signs: Vital Signs - 24 hr Temp Pulse Resp BP Pulse Ox 08/06/24 18:56 97.5 F 83 16 109/70 98 08/06/24 16:19 97.7 F 69 12 120/61 98 08/06/24 16:00 97.7 F 69 12 120/61 98 08/06/24 15:51 76 16 98 Results - Radiology Impressions Radiology Exams & Impressions: Radiology Procedures Category Date Time Status ABDOMEN AND PELVIS W/0 CONTRAS [CT] Routine Exams 08/06/24 12:29 Completed CHEST 2 VIEWS (PA AND LAT) Routine Exams 08/06/24 12:29 Completed CHEST WITH CONTRAST [CT] Stat Exams 08/06/24 13:10 Completed VENOUS BILATERAL EXTREMITY [US] Stat Exams 08/06/24 15:55 Completed Telemedicine Encounter - Telemedicine Encounter Telemedicine Encounter: "The entirety of this encounter was performed via Telemedicine" This visit was performed using real-time audio and video connection between my location and thepatients locationwith the assistance of a surrogateat the patients location. Written or verbal consent was obtained from the patient/guardian to perform this visit using[employer] technology. Any patient questions regarding the telemedicine interaction were answered. RYAN Encounter - RYAN Encounter Attestation RYAN Encounter Attestation: "ENRIQUE Amaya andamparoiscussed pertinent aspects of their care with Armand Santiago and agree with the history, physical exam (any modifications based on my personal exam will be noted below), assessment, and plan as outlined in original note. Please see immediately below for my summary of findings and additional assessment and plan along with any meaningful corrections/explanations to the Subjective/Objective portions of the RYAN note will be noted." My portion of the encounter took place via telemedicine. -Patient with N/V abdominal pain without abnormal labs or abnormal CT abdomen findings. Symptoms likely related to viral GE. Incidental finding of tiny PE (elevated D dimer). Started on anticoagulation after discussion with Dr. Rodgers. Admit for observation. Advance diet as tolerated. Will need outpatient hematology follow up.
--- NOTE | 2024-08-06 17:22 | XRAY ---
Indication: Pulmonary embolus. Two-dimensional sonogram and color Doppler imaging major venous vessels left and right leg performed. Comparison: None No thrombus seen in the examined deep venous vessels left and right leg including greater saphenous vein. Veins demonstrate normal compressibility. Venous waveforms are normal with and without augmentation. Impression: Left and right leg negative for DVT.
[2024-08-06] MEDS: PROTONIX 40 MG IV IV SCH (18:26)
[2024-08-06] MEDS: ENOXAPARIN SODIUM SQ SCH (18:26)
[2024-08-06 18:57] VITALS: RESP 16
[2024-08-07 04:42] LABS: Hematocrit 41.6 % (34.1-44.9); Hemoglobin 13.2 g/dL (11.2-15.7); Mean Cell Volume 87.4 fL (79.4-94.8); Mean Corpuscular Hemoglobin 27.7 pg (25.6-32.2); Mean Corpuscular Hgb Concent. 31.7 g/dL (32.2-35.5); Mean Platelet Volume 10.4 fL (9.4-12.3); Platelet Count 288 x10^3/uL (182-369); Red Blood Count 4.76 x10^6/uL (3.93-5.22); Red Cell Distribution Width 12.8 % (11.7-14.4)
[2024-08-07 04:59] LABS: ANION GAP 13.5 MEQ/L (5-15); BILIRUBIN,TOTAL 0.7 mg/dL (0.2-1.3); Creatinine 1 0.83 mg/dL (0.52-1.04); EST GLOMERULAR FILTRATION RATE 93.6 ML/MIN; Potassium 4.2 mmol/L (3.5-5.1)
[2024-08-07] MEDS: ELIQUIS 2.5 MG TABLET PO SCH (09:19)
--- NOTE | 2024-08-07 10:25 | PCM.DS ---
Discharge Summary Date of Admission: 08/06/24 14:38 Date of Discharge: 08/07/24 Admitting Physician: CATHY HUANG MD Primary Care Provider: JAMAL PALMA Allergies Allergies No Known Drug Allergies Allergy (Verified 11/17/17 23:27) Hospital Summary - Hospital Course Hospital Course: is a 38 year old female with no significant pmhx who presents as a direct admit from [facility] after a week history of nausea, vomiting, abdominal bloating/distention, and shortness of breath. Patient states that over the past four days she has only been able to tolerate a clear liquid diet. Patient has had outpatient workup with CT abdomen/pelvis with no acute findings. CXR with no acute findings. CT chest showing new tiny non-occluding PE in the RUL. Bilateral venous doppler negative for DVT. Lab findings remarkable for elevated ddimer in the setting of PE. CBC and chemistries unremarkable. Lupe/lipase WNL. Patient denies PE risk factors including travel, h/o malignancy, smoking, or use of control. She does report that back in 2013 she was diagnosed with a PE and started on Xarelto. She was referred to stave log cut off saw operator Dr. Rodgers who reviewed her imagining and ruled out PE noting that instead she had reactive enlarged LN from recent URI. Patient was then taken off of Xarelto. Denies fever,cough,cp, dysuria, hematuria, leg pain, or edema. Dr. Rodgers has reviewed CT imaging - can not rule out PE -patient has decided to continue with Eliquis - does not wish to repeat CTA. She will follow up OP with Dr. Jimenez (hematology) for evaluation of unprovoked PE. Advised follow up with pcp and pulmonology as well. She is still having some nausea/vomiting but able to tolerate a clear liquid diet and is requesting discharge home. Labs and vitals stable. Will dismiss with Eliquis and zofran. Discharge Note New Diagnosis: PE/nausea/vomiting New Medications: Eliquis/ Zofran Follow Up: PCP/hematology/pulmonology Latest Assessment & Plan (1) Pulmonary embolism Current Visit: Yes Status: Acute Assessment & Plan: -CT Chest showing new tiny RUL PE - non-occluding -Unprovoked - Dr. Rodgers has reviewed imaging per pt request - agrees that PE can not be excluded - recs either patient can repeat CTA tomorrow or continue with OAC x 3 months -pt wishes to not repeat CTA and continue with OAC -consider hematology consult for evaluation of clotting disorder -RA at baseline -supplemental oxygen as needed - ABG with significant hypoxia -Tele -Lovenox -therapeutic dosing x 24 hours then- Eliquis 10mg bid x 7 days, 5mg bid there after -Venous doppler BLE - negative for DVT Code(s): I26.99 - OTHER PULMONARY EMBOLISM WITHOUT ACUTE COR PULMONALE (2) Abdominal pain Current Visit: No Status: Acute Assessment & Plan: -CT abdomen with no acute findings - last BM today -Lupe/lipase wnl -most likely viral -supportive care with anti-emetics - maintain CLD -ADAT Code(s): R10.9 - UNSPECIFIED ABDOMINAL PAIN (3) Vomiting Current Visit: No Status: Acute Assessment & Plan: -see abdominal pain VTE: lovenox PPI: Protonix Dispo: 1-2 days I spent 35 minutes [id number] with the patient on the day of discharge performing discharge exam, discussing hospital stay and discharge instructions with patient and caregivers, preparation of discharge records, prescriptions & referral forms and addressing any questions/concerns the patient had as documented above. - Vitals & Intake/Output Vital Signs: Vital Signs Temperature 97.8 F 08/07/24 07:07 Pulse Rate 79 08/07/24 07:07 Respiratory Rate 16 08/07/24 07:07 Blood Pressure 116/67 08/07/24 07:07 O2 Sat by Pulse Oximetry 97 08/07/24 07:07 Intake & Output: Intake & Output 08/04/24 08/05/24 08/06/24 08/07/24 11:59 11:59 11:59 11:59 Intake Total 0 Output Total 150 Balance -150 Weight 111.8 kg - Lab Result Diagrams: 08/07/24 04:20 08/07/24 04:20 Lab Results-Last 24 Hrs: Lab Results-Last 24 Hours 08/07/24 08/07/24 Range/Units 04:20 04:20 WBC 8.0 (3.98-10.04) x10^3/uL RBC 4.76 (3.93-5.22) x10^6/uL Hgb 13.2 (11.2-15.7) g/dL Hct 41.6 (34.1-44.9) % MCV 87.4 (79.4-94.8) fL MCH 27.7 (25.6-32.2) pg MCHC 31.7 L (32.2-35.5) g/dL RDW 12.8 (11.7-14.4) % Plt Count 288 (182-369) x10^3/uL MPV 10.4 (9.4-12.3) fL Sodium 137 (135-145) mmol/L Potassium 4.2 (3.5-5.1) mmol/L Chloride 104 (98-107) mmol/L Carbon Dioxide 24 (22-30) mmol/L Anion Gap 13.5 (5-15) MEQ/L BUN 11 (7-17) mg/dL Creatinine 0.83 (0.52-1.04) mg/dL Estimated GFR 93.6 ML/MIN Glucose 92 (74-106) mg/dL Calcium 9.0 (8.4-10.2) mg/dL Total Bilirubin 0.70 (0.2-1.3) mg/dL AST 26 (14-36) U/L ALT 21 (0-35) U/L Alkaline Phosphatase 63 (38-126) U/L Serum Total Protein 7.0 (6.3-8.2) g/dL Albumin 4.0 (3.5-5.0) g/dL - Radiology Exams Ordered Rad Exams-Entire Visit: Radiology Procedures Category Date Time Status ABDOMEN AND PELVIS W/0 CONTRAS [CT] Routine Exams 08/06/24 12:29 Completed CHEST 2 VIEWS (PA AND LAT) Routine Exams 08/06/24 12:29 Completed CHEST WITH CONTRAST [CT] Stat Exams 08/06/24 13:10 Completed VENOUS BILATERAL EXTREMITY [US] Stat Exams 08/06/24 15:55 Completed - Procedures and Test Procedures and Tests throughout Hospitalization: Therapy Orders & Screens 08/06/24 15:02 Respiratory Therapy Consult ONCE Comment: Reason For Exam: Discharge Exam General Appearance: no apparent distress Neurologic Exam: alert, oriented x 3, cooperative Eye Exam: PERRL Ears, Nose, Throat Exam: normal ENT inspection Neck Exam: normal inspection Respiratory Exam: normal breath sounds, lungs clear Cardiovascular Exam: regular rate/rhythm, normal heart sounds Gastrointestinal/Abdomen Exam: soft, normal bowel sounds Pelvic Exam: deferred Rectal Exam: deferred Back Exam: normal inspection Extremity Exam: normal inspection Skin Exam: normal color Final Diagnosis/Problem List - Final Discharge Diagnosis/Problem (1) Pulmonary embolism Current Visit: Yes Status: Acute Code(s): I26.99 - OTHER PULMONARY EMBOLISM WITHOUT ACUTE COR PULMONALE (2) Abdominal pain Current Visit: No Status: Acute Code(s): R10.9 - UNSPECIFIED ABDOMINAL PAIN (3) Vomiting Current Visit: No Status: Acute Code(s): R11.10 - VOMITING, UNSPECIFIED - Discharge Disposition: Home, Self-Care Condition: Stable Prescriptions: New Apixaban [Eliquis 2.5 mg Tablet] See Rx Instructions .ROUTE .COMPLEX tablet Ondansetron ODT 4 MG [Zofran Odt 4 mg] 4 mg PO Q6H PRN PRN 30 Days #30 tablet PRN Reason: Nausea Instructions: Apixaban, Pulmonary embolism - Discharge instructions Follow up with: SYLVESTER JIMENEZ MD [NON-STAFF PHY W/O PRIVILEGES] - 08/15/24 10:00 am JAMAL APLMA NP [Primary Care Provider] - 08/13/24 1:00 pm JOSE ENRIQUE RODGERS [ACTIVE STAFF] - 1 Week
[2024-08-07 11:28] VITALS: BP 126/82; PULSE 61; TEMP 97.7; O2SAT 96
== END 2024-08-07 11:20 | disposition home or self-care (01) ==
LOC: RAD 12:10 → EDSTATUS 14:36 → MED SURG 14:38
PROVIDERS: ADMIT Internal Medicine; ATTEND Internal Medicine
DX: I26.99 Other pulmonary embolism without acute cor pulmonale (principal); R10.9 Unspecified abdominal pain; R11.2 Nausea with vomiting, unspecified; R07.89 Other chest pain; R10.12 Left upper quadrant pain; R79.1 Abnormal coagulation profile; Z86.711 Personal history of pulmonary embolism
CPT/HCPCS: 36415; 71046; 71260; 74176; 80053; 85027; 93268; 93970; G0378; Q3014; J1650; J2405; A9270-GY